=== PATIENT | female | born 1980 | race Caucasian/White ===

== ENCOUNTER 2022-08-01 22:56 | Inpatient (IN) ==
[2022-08-01] MEDS ORDERED: MoRPHine SULFATE 4 MG/ML 1 ML CARP\\VIAL IV STA (23:19)
[2022-08-01] MEDS ORDERED: ONDANSETRON INJ 2 MG/ML 2 ML VIAL IV STA (23:19)
[2022-08-01] MEDS ORDERED: SODIUM CHLORIDE 0.9% 1000ML 1,000 ML IV STA (23:19)
--- NOTE | 2022-08-01 23:29 | Emergency Department Note ---
History of Present Illness General Chief complaint: Abdominal Pain Stated complaint: STOMACH AND BACK PAIN History of Present Illness Maximum Pain Intensity: 10 This 41-year-old female presents to the ER with friend complaining of abdominal pain for the past day. She has had an appendectomy in the past. No other prior abdominal surgeries. Patient denies chest pain, dyspnea, fevers, vomiting, diarrhea, urinary symptoms. Home Medications Medication Instructions Recorded Confirmed Type No Known Home Medications 08/02/22 08/02/22 History Allergies Allergy/AdvReac Type Severity Reaction Status Date / Time No Known Allergies Allergy Verified 08/02/22 00:06 Past Med/Surg History Social History Smoking Status: Never smoker Feels Safe at Home: Yes Review of Systems A total of 10 systems reviewed and were otherwise negative Physical Exam Vital Signs Vital Signs - 24 hr 08/01/22 23:06 08/01/22 23:42 08/02/22 00:11 Temperature 36.5 C Temperature Source Temporal Artery Scan Pulse Rate 77 86 Pulse Rate from SpO2 Sensor 84 Respiratory Rate 18 21 Respiratory Effort / Characteristics Non-Labored Spontaneous Respiratory Depth Normal Blood Pressure 137/94 Blood Pressure Mean 108 Blood Pressure Position Sitting Pulse Oximetry 98 94 97 Oxygen Delivery Method Room Air Room Air Sepsis Recent Fever Within 48 Hours No Sepsis New/Unexplained Change in Mental Status N/A Sepsis Action Taken by Nursing No Action Required 08/02/22 00:30 08/02/22 00:30 08/02/22 01:00 Temperature Temperature Source Pulse Rate 77 79 Pulse Rate from SpO2 Sensor 78 80 Respiratory Rate 23 27 H Respiratory Effort / Characteristics Respiratory Depth Blood Pressure 100/60 98/64 L Blood Pressure Mean 73 75 Blood Pressure Position Pulse Oximetry 94 94 Oxygen Delivery Method Sepsis Recent Fever Within 48 Hours Sepsis New/Unexplained Change in Mental Status Sepsis Action Taken by Nursing 08/02/22 01:32 08/02/22 02:00 08/01/22 23:40 Temperature Temperature Source Pulse Rate 78 75 70 Pulse Rate from SpO2 Sensor 78 75 Respiratory Rate 19 22 Respiratory Effort / Characteristics Respiratory Depth Blood Pressure 107/65 Blood Pressure Mean 79 Blood Pressure Position Pulse Oximetry 97 94 Oxygen Delivery Method Sepsis Recent Fever Within 48 Hours Sepsis New/Unexplained Change in Mental Status Sepsis Action Taken by Nursing 08/02/22 03:48 Temperature Temperature Source Pulse Rate 71 Pulse Rate from SpO2 Sensor Respiratory Rate Respiratory Effort / Characteristics Respiratory Depth Blood Pressure Blood Pressure Mean Blood Pressure Position Pulse Oximetry Oxygen Delivery Method Sepsis Recent Fever Within 48 Hours Sepsis New/Unexplained Change in Mental Status Sepsis Action Taken by Nursing VITALS: Vitals are noted on the nurse's note and reviewed by myself. Vital signs stable. GENERAL: Pleasant female, in no acute distress, nondiaphoretic, well-developed well-nourished. SKIN: The skin was without rashes, erythema, edema, or bruising. There is no tenting of the skin. Capillary reflex less than 2 seconds. HEAD: Normocephalic atraumatic. EARS: External auditory canals clear, EYES: Pupils equal round and reactive to light and accommodation. Conjunctivae without injection, sclerae without icterus. Extraocular movements intact. NOSE: Patent, turbinates without inflammation or discharge. MOUTH: Mucous membranes moist. Pharynx without erythema or exudate. Uvula midline. Airway patent. Tongue does not deviate. NECK: Supple without nuchal rigidity. No lymphadenopathy. No thyromegaly. Cervical spine is nontender. No JVD. HEART: Regular rate and rhythm LUNGS: Clear to auscultation bilaterally without wheezes, rales or rhonchi. No retractions or accessory muscle use. ABDOMEN: Positive bowel sounds x 4. Normal tympanic percussion. Soft, diffusely tender with increased pain in the left lower quadrant, without masses or organomegaly. Calderón sign negative. No guarding or rebound tenderness. No CVA tenderness MUSCULOSKELETAL: No muscle atrophy, erythema, or edema noted. NEURO: Patient was alert and oriented to person place and time. Normal sensation to light and sharp touch. No focal neurological deficits. Course Administered Medications Discontinued Medications Sodium Chloride (Nss 1000ml) 1,000 mls @ 999 mls/hr IV .Q1H1M STA Stop: 08/02/22 00:19 Last Infusion: 08/02/22 02:08 Dose: 0 mls/hr Documented By: Admin: 08/01/22 23:45 Dose: 999 mls/hr Documented By: LEA Piperacillin Sod/Tazobactam Sod (Zosyn) 4.5 gm in 120 mls @ 240 mls/hr IV NOW ONE Stop: 08/02/22 02:54 Last Admin: 08/02/22 03:53 Dose: 240 mls/hr Documented By: LEA Sodium Chloride (Nss 1000ml) 1,000 mls @ 999 mls/hr IV .Q1H1M ONE Stop: 08/02/22 03:25 Last Admin: 08/02/22 03:53 Dose: 999 mls/hr Documented By: LEA Ioversol (Optiray 350 100ml) 100 ml IV ONCE ONE Stop: 08/02/22 01:32 Last Admin: 08/02/22 01:31 Dose: 83 ml Documented By: KEVIN Morphine Sulfate (Morphine Sulfate 4 Mg/Ml 1 Ml Carp\Vial) 4 mg IV NOW STA Stop: 08/01/22 23:20 Last Admin: 08/01/22 23:45 Dose: 4 mg Documented By: LEA Ondansetron HCl (Ondansetron Inj 2 Mg/Ml 2 Ml Vial) 4 mg IV NOW STA Stop: 08/01/22 23:20 Last Admin: 08/01/22 23:45 Dose: 4 mg Documented By: LEA Medical Decision Making Medical Records Attestation: I reviewed the patient's medical records. Home Medications Current Medication List: was personally reviewed by me Laboratory Data Attestation: I reviewed the patient's lab results. 08/01/22 23:35 08/01/22 23:35 Lab Results 08/01/22 08/01/22 08/01/22 Range/Units 23:35 23:35 23:35 WBC 8.99 (4.8-10.8) K/ul RBC 4.78 (4.20-5.40) M/uL Hgb 15.0 (12.0-16.0) g/dl Hct 44.0 (37.0-47.0) % MCV 92.1 (80.0-100.0) fL MCH 31.4 (25.0-34.0) pg MCHC 34.1 (32.0-36.0) g/dL RDW Std Deviation 42.4 (36.4-46.3) fL RDW Coeff of Nik 12.6 (11.5-14.5) % Plt Count 369 (130-400) K/uL MPV 10.8 (9.4-12.4) fL Immature Gran % (Auto) 0.2 % Neut % (Auto) 76.4 % Lymph % (Auto) 18.2 % Rice % (Auto) 4.8 % Eos % (Auto) 0.1 % Baso % (Auto) 0.3 % Neut # (Auto) 6.86 H (1.40-6.50) K/uL Lymph # (Auto) 1.64 (1.2-3.4) K/uL Rice # (Auto) 0.43 (0.11-0.59) K/uL Eos # (Auto) 0.01 (0-0.50) K/uL Baso # (Auto) 0.03 (0-0.2) K/uL Immature Gran # (Auto) 0.02 (0.01-0.20) K/uL Sodium 139 (136-145) mmol/L Potassium 3.9 (3.5-5.1) mmol/L Chloride 98 (98-107) mmol/L Carbon Dioxide 21 (21-32) mmol/L Anion Gap 20 H (3-11) BUN 8 (6-23) mg/dl Creatinine 0.34 L (0.6-1.2) mg/dl Est Cr Clr Drug Dosing 207.2 ml/min Est GFR ( Amer) > 150.0 ml/min Est GFR (Non-Af Amer) 137.4 ml/min BUN/Creatinine Ratio 23.5 H (10-20) Glucose 80 (70-99(Fasting)) mg/dl Lactate (0.4-2.0) mmol/L Calcium 10.8 H (8.5-10.1) mg/dl Total Bilirubin 1.4 H (0.2-1.0) mg/dl AST 379 H (13-39) U/L ALT 359 H (7-52) U/L Alkaline Phosphatase 238 H (34-104) U/L Total Protein 9.2 H (6.0-8.3) gm/dl Albumin 5.4 H (3.4-5.0) gm/dl Globulin 3.8 (2.5-4.0) gm/dl Albumin/Globulin Ratio 1.4 (0.9-2) Lipase 49 (11-82) U/L HCG, Qual Negative (Negative) SARS-CoV-2, RNA, NAAT (NEGATIVE) 08/02/22 08/02/22 Range/Units 03:37 04:20 WBC (4.8-10.8) K/ul RBC (4.20-5.40) M/uL Hgb (12.0-16.0) g/dl Hct (37.0-47.0) % MCV (80.0-100.0) fL MCH (25.0-34.0) pg MCHC (32.0-36.0) g/dL RDW Std Deviation (36.4-46.3) fL RDW Coeff of Nik (11.5-14.5) % Plt Count (130-400) K/uL MPV (9.4-12.4) fL Immature Gran % (Auto) % Neut % (Auto) % Lymph % (Auto) % Rice % (Auto) % Eos % (Auto) % Baso % (Auto) % Neut # (Auto) (1.40-6.50) K/uL Lymph # (Auto) (1.2-3.4) K/uL Rice # (Auto) (0.11-0.59) K/uL Eos # (Auto) (0-0.50) K/uL Baso # (Auto) (0-0.2) K/uL Immature Gran # (Auto) (0.01-0.20) K/uL Sodium (136-145) mmol/L Potassium (3.5-5.1) mmol/L Chloride (98-107) mmol/L Carbon Dioxide (21-32) mmol/L Anion Gap (3-11) BUN (6-23) mg/dl Creatinine (0.6-1.2) mg/dl Est Cr Clr Drug Dosing ml/min Est GFR ( Amer) ml/min Est GFR (Non-Af Amer) ml/min BUN/Creatinine Ratio (10-20) Glucose (70-99(Fasting)) mg/dl Lactate 2.3 H* (0.4-2.0) mmol/L Calcium (8.5-10.1) mg/dl Total Bilirubin (0.2-1.0) mg/dl AST (13-39) U/L ALT (7-52) U/L Alkaline Phosphatase (34-104) U/L Total Protein (6.0-8.3) gm/dl Albumin (3.4-5.0) gm/dl Globulin (2.5-4.0) gm/dl Albumin/Globulin Ratio (0.9-2) Lipase (11-82) U/L HCG, Qual (Negative) SARS-CoV-2, RNA, NAAT NEGATIVE (NEGATIVE) Imaging Data Attestation: I personally reviewed and interpreted this imaging study as follows: MDM Narrative Prior records/ancillary studies reviewed. Triage Nursing notes reviewed. Additional history obtained from friend. The patient's history was concerning for abdominal pain. Differential diagnosis: Etiologies such as appendicitis, diverticulitis, PUD, biliary pathology, UTI, pancreatitis, obstruction, mesenteric ischemia, aortic pathology, infections, inflammatory bowel disease, renal colic, as well as others were entertained. Physical examination findings: As above. ER treatment provided: An order was placed for continuous cardiac monitoring. The monitor shows a rate of 60-100 with a sinus rhythm per my Independent interpretation. IV fluids morphine Zofran ordered Zosyn was ordered for possible infection On reassessment the patient felt better. Diagnostics interpreted by me: The labs Independently Interpreted by myself revealed elevated LFTs and T. bili. Normal lipase. No worrisome leukocytosis Imaging studies: CT ABDOMEN & PELVIS With Contrast: Common ductal dilatation measuring 1.0 cm with mild intrahepatic biliary dilatation and adjacent periportal edema. This is increased from prior study July 26, 2012. Findings may be due to obstruction at the ampulla. Consider MRCP and correlation with laboratory values. Suspected appendectomy changes. No evidence of bowel obstruction. Left ovarian cyst, likely hemorrhagic cyst, measuring up to 2.5 cm. ACR White Paper guidelines (Pitt, et. al. JACR 2020;17(2):248-254) suggest no follow-up is necessary. No other acute findings. Radiologist: Milton Lorenzo MD Consultation: A consultation was placed with the surgical PA Reinier. The case was discussed and diagnostics were reviewed. The patient was evaluated in the ER for further treatment. He recommends medical admission Medicine is consulted and the case was discussed. Patient will be admitted to the medical team. Exam and history seem consistent with dilated common bile duct with LFTs and T. bili elevation concerning for Choledocholithiasis. patient was started on antibiotics. Medicine and surgery were consulted and MRCP was ordered. Labs and diagnostics were independent interpreted by myself. Radiology read the CAT scan. Patient is agreeable treatment plan of admission. Patient was reassessed multiple times. By the evaluation outlined above emergent etiologies such as ap pendicitis, diverticulitis, PUD, UTI, pancreatitis, mesenteric ischemia, aortic pathology, inflammatory bowel disease, renal colic, as well as others were deemed relatively unlikely. The pt informed about the findings as listed above. All questions were answered and pleased with the treatment. The chart was completed utilizing [employer] Speech voice recognition software. Grammatical errors, random word insertions, pronoun errors, and incomplete sentences are an occassional consequence of this system due to software limitations, ambient noise, and hardware issues. Any formal questions or concerns about the content, text, or information contained within the body of this dictation should be directly addressed to the physician underwriting assistant for clarification. Impression & Plan Choledocholithiasis, Elevated LFTs, Abdominal pain, acute Discharge Plan Visit Data Chief Complaint: Abdominal Pain Stated Complaint: STOMACH AND BACK PAIN ED Provider: Dion Snowden ED Midlevel Provider: Latricia Mcgee Discharge Problem: Choledocholithiasis, Elevated LFTs, Abdominal pain, acute Patient Disposition: Admitted As Inpatient Condition: Good Forms Stand Alone Forms: [employer] Prescriptions Prescriptions: No Action No Known Home Medications Referrals Referrals: PCP,NO [Primary Care Provider] -
[2022-08-02 00:04] LABS: Basophils # (auto) 0.03 K/uL (0-0.2); Basophils % (auto) 0.3 %; Eosinophils # (auto) 0.01 K/uL (0-0.50); Eosinophils % (auto) 0.1 %; Immature Granulocytes # (auto) 0.02 K/uL (0.01-0.20); Immature Granulocytes % (auto) 0.2 %; Lymphocytes # (auto) 1.64 K/uL (1.2-3.4); Lymphocytes % (auto) 18.2 %; Mean Corpuscular Hemoglobin 31.4 pg (25.0-34.0); Mean Corpuscular Hgb Conc 34.1 g/dL (32.0-36.0); Mean Corpuscular Volume 92.1 fL (80.0-100.0); Mean Platelet Volume 10.8 fL (9.4-12.4); Monocytes # (auto) 0.43 K/uL (0.11-0.59); Monocytes % (auto) 4.8 %; Neutrophils # (auto) 6.86 K/uL (1.40-6.50); Neutrophils % (auto) 76.4 %; Platelet Count 369 K/uL (130-400); RDW Coefficient of Variation 12.6 % (11.5-14.5); RDW Standard Deviation 42.4 fL (36.4-46.3); Red Blood Count 4.78 M/uL (4.20-5.40); White Blood Count 8.99 K/ul (4.8-10.8)
[2022-08-02 00:19] LABS: Alanine Aminotransferase 359 U/L (7-52); Albumin Globulin Ratio 1.4 (0.9-2); Albumin Level 5.4 gm/dl (3.4-5.0); Alkaline Phosphatase 238 U/L (34-104); Anion Gap 20 (3-11); Aspartate Aminotransferase 379 U/L (13-39); BUN Creatinine Ratio 23.5 (10-20); Bilirubin,Total 1.4 mg/dl (0.2-1.0); Blood Urea Nitrogen 8 mg/dl (6-23); Calcium 10.8 mg/dl (8.5-10.1); Carbon Dioxide 21 mmol/L (21-32); Chloride 98 mmol/L (98-107); Creatinine Clr Calc Pharmacy 207.2 ml/min; Est GFR (African American) > 150.0 ml/min; Est GFR (Non-African American) 137.4 ml/min; Globulin 3.8 gm/dl (2.5-4.0); Glucose 80 mg/dl (70-99(Fasting)); Lipase 49 U/L (11-82); Potassium 3.9 mmol/L (3.5-5.1); Sodium 139 mmol/L (136-145); Total Protein 9.2 gm/dl (6.0-8.3)
[2022-08-02 00:52] LABS: Pregnancy Test, Serum Negative (Negative)
[2022-08-02] MEDS ORDERED: OPTIRAY 350 100ml IV ONE (01:31)
[2022-08-02] MEDS ORDERED: SODIUM CHLORIDE 0.9% 1000ML 1,000 ML IV ONE (02:25)
[2022-08-02] MEDS ORDERED: PIPERACILLIN/TAZOBACTAM 4.5 GM/120 ML BAG IV ONE (02:25)
--- NOTE | 2022-08-02 04:14 | Surgery Consultation ---
Date of Consultation August 02, 2022 Assessment & Plan (1) Elevated LFTs: I discussed with the treating clinician in the emergency department. The patient is being admitted on the medical service. We recommend proceeding as follows. Provide analgesics Provide antiemetics Provide antibiotics. Zosyn has been initiated Provide IV fluid for hydration Follow serial labs There is concern for obstruction at the biliary ampulla. To further delineate the cause of the obstruction an MRCP has been ordered. We will await the results of this. Based on the results of the MRCP a gastroenterology consultation may be required. If patient has evidence of choledocholithiasis and ERCP will be required prior to entertaining performing a cholecystectomy which also may be indicated. Additional recommendation will be made based on the above pending study and recommendations by gastroenterology. Supervising Physician Co-Signing Physician Notes Dr Baig- pts case reviewed- sxs, labs, studies- dilated CBD, elev LFTs- gb distended, no thickening- possible mild inflammation MRCP , GI eval pending. Likely laparoscopic cholecystectomy this adm. History of Present Illness Reason for Consultation: Abdominal pain History of Present Illness This is a 41-year-old female who presented to [facility] emergency department secondary to abdominal pain. She notes that the pain has been present in an on-and-off fashion for several weeks and is usually located in the right upper quadrant. She said that the pain will usually resolve on its own but at approximately 5:00 PM on 08/01/2022 she developed severe right upper quadrant pain that was unremitting. She denies any fevers, shakes, or chills. She denies any nausea or vomiting. She notes that the pain does not radiate and did not have any palliative or provocative factors. Due to the unremitting nature of the pain she presented to the emergency department. Patient notes that she has had prior abdominal surgeriesshe has had an appendectomy and she has also had surgery for a hiatal hernia. Since arrival to the hospital the patient has had labs and imaging which I independent reviewed. Patient's common bile duct was dilated measuring approximately 1 cm. There is also intrahepatic biliary ductal dilatation. There is no evidence of bowel obstruction. A left ovarian cyst which was hemorrhagic in nature was also noted. There are findings consistent with a prior appendectomy. Labs include a CBC were white blood cell count, hemoglobin, hematocrit, and platelet count were normal. Chemistry profile showed sodium and potassium were normal. Her BUN and creatinine were nonelevated. LFTs were elevated with a total bilirubin of 1.4. Her AST and ALT were elevated at 379 and 359. Alkaline phosphatase was also elevated at 238. Lipase was nonelevated and a test was negative. Lactic acid had a slight elevation at 2.3. Since arrival to the hospital the patient has received 2 L of normal saline solution and antibiotics in the form of Zosyn. At the time of my interview she was resting comfortably in bed and she was in no distress. Concerning past medical problems the patient denies any medical problems Concerning past surgical history she notes she has had an appendectomy and surgery for hiatal hernia Social history the patient denies history of smoking Family history she denies any family history of premature coronary artery disease Allergies Allergy/AdvReac Type Severity Reaction Status Date / Time No Known Allergies Allergy Verified 08/02/22 00:06 Home Medications Medication Instructions Recorded Confirmed Type No Known Home Medications 08/02/22 08/02/22 History Patient History Social History Smoking Status: Never smoker Feels Safe at Home: Yes Review of Systems Constitutional: no fever and no chills Eyes: + corrective lenses Ear, Nose, Mouth, Throat: no ear pain Respiratory: no cough and no dyspnea Cardiovascular: no chest pain Gastrointestinal: as per Subjective / HPI Genitourinary: no dysuria Musculoskeletal: no back pain Integumentary: no rash Neurologic: no localized weakness Physical Exam Constitutional: WD/WN, vitals as above Eyes: + anicteric sclerae ENMT: Ears: no hearing impairment and no external ear abnormality Sublingual jaundice is absent Neck: trachea midline Respiratory: normal respiratory effort; no respiratory distress and no labored breathing Cardiovascular: Rate/Rhythm: regular rate and regular rhythm Gastrointestinal (Abdomen): Abdomen is soft and nondistended. There is no rebound tenderness or guarding. The patient did have pain with palpation greatest in the right upper quadrant but to a lesser degree just to the left of the umbilicus. Musculoskeletal: No calf tenderness Skin: no rashes Neurologic: moves all extremities Psychiatric: Orientation: alert and oriented x 3 Affect: + flat affect Results & Data ([facility]) Vital Signs (Past 12 Hours) Vital Signs Temp Pulse Resp BP Pulse Ox O2 Del Method 02/21/23 03:48 71 08/01/22 23:40 70 08/02/22 02:00 75 22 107/65 94 08/02/22 01:32 78 19 97 08/02/22 01:00 79 27 H 98/64 L 94 08/02/22 00:30 77 23 94 08/02/22 00:30 100/60 08/02/22 00:11 86 21 97 08/01/22 23:42 94 Room Air 08/01/22 23:06 36.5 C 77 18 137/94 98 Room Air PG Care Time/CCT Total # of Minutes Spent Total Time Spent with Patient: Total time spent is greater than 50% in coordination of care (as documented) at patient's floor/unit and/or counseling patient: Coding Level of Care Code INP/OBS CONSULT LVL 5, 80 MIN Diagnoses Elevated LFTs R79.89
--- NOTE | 2022-08-02 06:41 | CT Scan Report ---
CT OF THE ABDOMEN AND PELVIS WITH CONTRAST CLINICAL HISTORY: Left-sided abdominal pain. COMPARISON STUDY: CT of the abdomen and pelvis July 26, 2012. TECHNIQUE: Following IV administration of 83 mL of Optiray, axial images of the abdomen and pelvis we re obtained from the lung bases to the proximal femurs. Images were reviewed in the axial, sagittal, and coronal planes. IV contrast was administered without complication. Automated exposure control wa s utilized for the study. A dose lowering technique was utilized adhering to the principles of ALARA . CT DOSE: 511.67 mGy.cm FINDINGS: Lung bases are unremarkable. No pneumatosis, free air or portal venous gas is present. Mild intra and extrahepatic biliary ductal patient is present. The common bile duct measures 1 cm in darnell moriah. There is periportal edema. No definite peripancreatic or pericholecystic infiltration. There is no pancreatic ductal dilatation. There are no peripancreatic fluid collections. The spleen and adrena l glands are normal. There is no hydronephrosis. There is suspected excreted contrast within the homero ecting systems. The appendix is surgically absent. The caliber and wall thickness of small and large bowel are normal. 2.5 cm rim-enhancing left adnexal lesion favors a corpus luteal cyst. There is no f ree fluid. Major vasculature is patent. There is no lymphadenopathy. No acute fractures are identifie d. IMPRESSION: 1. Mild intra and extrahepatic biliary ductal dilatation. Correlation with obstructive liver function tests is recommended. 2. No bowel obstruction. Status post appendectomy. 3. Left ovarian corpus luteal cyst. ACT 112: Negative or not required by law. Electronically signed by: Tl Altamirano M.D. 08/02/2022 6:39 AM
--- NOTE | 2022-08-02 07:10 | History and Physical Report ---
DATE OF ADMISSION: 08/02/2022. CHIEF COMPLAINT: Abdominal pain. HISTORY OF PRESENT ILLNESS: This is a 41-year-old female with no significant past medical history, who presents with abdominal pain. The patient says since last two weeks, she is having on and off abdominal pain, but since yesterday 5:00 p.m., the patient pain was not getting better, very severe in nature, that is the reason she came here. Before coming here, she had a normal bowel movement. Denies any nausea or vomiting. Normal bladder movements. Denies any fevers. No chest pain, no shortness of breath, no cough, no runny nose, no sore throat. No headache or dizziness. No blurred visions. Currently, resting comfortably and hemodynamically stable. After the pain medication, pain is resolved. Hemodynamically stable. ALLERGIES: No known drug allergies. PAST MEDICAL HISTORY: None. PAST SURGICAL HISTORY: Ten years ago, she had appendectomy. She had a hiatal hernia repair. MEDICATIONS: None. FAMILY HISTORY: Denies any family history. SOCIAL HISTORY: Denies any smoking or alcohol. REVIEW OF SYSTEMS: As per HPI. Rest of review of systems is negative. PHYSICAL EXAMINATION: GENERAL: The patient is of moderate built, not in acute distress. VITAL SIGNS: Temperature 36.5, pulse 71, respiratory rate 22, blood pressure 107/65, oxygen 94% on room air. HEENT: Pupils equal, round, and reactive to light. Oral mucosa moist. NECK: No JVD. No neck masses. CARDIOVASCULAR: S1 and S2 heard. Regular rate and rhythm. No murmur, no gallop. RESPIRATORY SYSTEM: Normal AP diameter. No accessory muscle use. No wheezing, no crackles. ABDOMEN: Soft, bowel sounds are nontender, no distention. CENTRAL NERVOUS SYSTEM: Cranial nerves II-XII grossly intact, nonfocal. EXTREMITIES: No edema, no erythema. LABORATORY DATA: WBC 8.9, hemoglobin 15, hematocrit 44, platelets 369. Sodium 139, potassium 3.9, chloride 98, CO2 of 21, BUN 8, creatinine 0.3, serum glucose 80. Initial lactate was 2.3, repeat pending. Calcium 10.8, total bilirubin 1.4, AST 379, ALT 359, alkaline phosphatase 238. Lipase 49. HCG qualitative negative. SARS-CoV-2 rapid test negative. IMAGING DATA: CT of abdomen and pelvis preliminary report shows common ductal dilatation measuring 1 cm with mild intrahepatic biliary dilatation and adjacent periportal edema. This is increased from prior study from 07/26/2012. Findings may be due to obstruction of the ampulla. Consider MRCP. Likely ovarian cyst, likely hemorrhagic cyst measuring up to 2.5 cm. ASSESSMENT AND PLAN: This is a 41-year-old female who presents with abdominal pain. 1. Abdominal pain and elevated LFTs. Also some elevated lactic acid of 2.3. CT of abdomen and pelvis preliminary report is showing obstruction of the ampulla and mild intrahepatic biliary dilatation and adjacent periportal edema. We will follow the final report of the CAT scan. MRCP was also done, results are pending, also evaluated by surgery. Continue IV fluids, IV Zosyn. Keep n.p.o. Follow the repeat labs. Follow the MRCP report and also consult GI. Closely monitor in the hospital. 2. Left ovarian cyst on the CAT scan. Will follow the final reports. If needed, consult DATA MINER. 3. Deep venous thrombosis prophylaxis: Sequential compression devices for now. DISPOSITION: Closely monitor in the medical floor. Expect to discharge home and follow with family doctor. Job ID: [id number] [facility]ITAL[facility]an
[2022-08-02] MEDS ORDERED: ONDANSETRON INJ 2 MG/ML 2 ML VIAL IV PRN ×2 (08:23→13:57)
[2022-08-02] MEDS ORDERED: POLYETHYLENE (MIRALAX) 17 GM PACK PO PRN (08:23)
[2022-08-02] MEDS: ACETAMINOPHEN 325 MG TAB PO PRN ×2 (09:10→17:30)
--- NOTE | 2022-08-02 09:10 | Magnetic Resonance Report ---
MRCP CLINICAL HISTORY: Elevated hepatic transaminases and bilirubin. COMPARISON STUDY: Abdominal CT dated 08/02/2022. TECHNIQUE: Abdominal MRCP is performed utilizing various T2-weighted sequences in the axial and coron al planes. IV contrast was not administered for this examination. 3-D reformats are created and asses sed. FINDINGS: There are numerous gallstones within the gallbladder lumen. The gallbladder wall appears mildly thick ened and there is surrounding infiltration and fluid. This likely represents acute cholecystitis. The common bile duct is dilated, measuring up to 10 mm in diameter. No intraluminal filling defects are identified to suggest choledocholithiasis. Question a gallstone at the ampulla. There is only minimal intrahepatic biliary ductal dilatation. The pancreatic duct is normal in caliber. The unenhanced liver, spleen, adrenal glands, and pancreas are grossly unremarkable. The kidneys are normal in size and without hydronephrosis. Susceptibility artifact in the upper pole of the left kidn ey is likely on a postsurgical basis. The abdominal aorta is normal in course and caliber. No bowel o bstruction is seen. There is trace pericolic cystic fluid. The heart is mildly enlarged and there are trace pleural effusions. No destructive bony process is seen. IMPRESSION: 1. Cholelithiasis with findings suggestive of of acute cholecystitis. Correlate with clinical laborat ory findings. 2. Question a tiny stone at the ampulla. Choledocholithiasis is not excluded. 3. The common bile duct is dilated measures up to 10 mm. There is also mild intrahepatic biliary duct al dilatation. Dictated: 08/02/2022 8:36 AM Transcribed: 08/02/2022 8:57 AM Claire [id number] [email or web address] Electronically signed by: Fareed Lantigua M.D. 08/02/2022 9:09 AM
[2022-08-02] MEDS: D5W AND 1/2NSS 1,000 ML IV SCH ×2 (09:11→17:29)
[2022-08-02] MEDS ORDERED: INDOMETHACIN 50 MG SUPP PR ONE (09:52)
[2022-08-02 09:59] LABS: Alanine Aminotransferase 371 U/L (7-52); Albumin Globulin Ratio 1.6 (0.9-2); Albumin Level 3.6 gm/dl (3.4-5.0); Alkaline Phosphatase 160 U/L (34-104); Anion Gap 5 (3-11); Aspartate Aminotransferase 380 U/L (13-39); BUN Creatinine Ratio 20.8 (10-20); Bilirubin,Total 1.4 mg/dl (0.2-1.0); Blood Urea Nitrogen 5 mg/dl (6-23); Calcium 8.1 mg/dl (8.5-10.1); Carbon Dioxide 26 mmol/L (21-32); Chloride 109 mmol/L (98-107); Creatinine Clr Calc Pharmacy 290.7 ml/min; Est GFR (African American) > 150.0 ml/min; Est GFR (Non-African American) > 150.0 ml/min; Globulin 2.2 gm/dl (2.5-4.0); Glucose 91 mg/dl (70-99(Fasting)); Potassium 3.5 mmol/L (3.5-5.1); Sodium 140 mmol/L (136-145); Total Protein 5.8 gm/dl (6.0-8.3)
[2022-08-02] MEDS: PIPERACILLIN/TAZOBACTAM 3.375 GM in DEXTROSE 5% 100 ML IV SCH ×2 (09:59→17:28)
[2022-08-02] MEDS ORDERED: INDOMETHACIN 50 MG SUPP PR SCH (10:00)
--- NOTE | 2022-08-02 10:14 | Gastrointestinal Consultation ---
Date of Consultation August 02, 2022 Assessment & Plan (1) Choledocholithiasis: (2) Cholecystitis with cholelithiasis: Patient is a 41 years old female who presented with epigastric abdominal pain, radiating to her back, noted to have elevated LFTs and abdominal imaging studies suggestive of cholelithiasis with cholecystitis, ampullary stone with biliary ductal dilations. - Keep NPO - Zosyn IV - Plan for ERCP today in OR by Dr. Elena Yen - Surgery following. - Trend LFTs - Supportive measures and symptomatic management otherwise Supervising Physician Co-Signing Physician Notes I saw and evaluated the patient, she presented with abdominal pain, elevated liver tests and has an MRCP suggesting stone material in the distal common bile duct. PE NAD RUQ tender to palpation Impression: patient with suspected choledocholithiasis, will proceed with ERCP today for biliary decompression, risks discussed to include bleeding, pain, pancreatitis, failed cannulation and need for f/u studies. Plan ERCP today. History of Present Illness Reason for Consultation: Abdominal pain Requesting Physician: Dr. Laurence Mcgregor Attending Physician: Dr. Elena Yen History of Present Illness Pt is a 41 yo female who presented yesterday w c/o epigastric abdominal pain for the last 2 weeks. Pain may radiate to her back. She denies any associated fevers, chills, nausea or vomiting. Denies any changes in her bowel habits. She went to an [facility] doctor gave her some herbs to take for possible kidney disease, as she is told that this might be the problem. However her symptoms did not resolve. On evaluation yesterday she is afebrile, no leukocytosis, she is noted to have elevated LFTs: Total bilirubin 1.4, AST 379, ALT 359, alkaline phosphatase 238. Lipase is normal. Abdominal imaging studies with CT abdomen and pelvis as well as MRCP showed signs of cholelithiasis with cholecystitis, biliary ductal dilatation of 10 mm, possible stone in the ampullary region. She is status post appendectomy and hiatal hernia repair. She denies any tobacco, alcohol or illicit drug uses. Denies family hx of GI malignancies. Allergies Allergy/AdvReac Type Severity Reaction Status Date / Time No Known Allergies Allergy Verified 08/02/22 00:06 Home Medications Medication Instructions Recorded Confirmed Type No Known Home Medications 02/21/23 02/21/23 History Patient History Social History Smoking Status: Never smoker Second Hand Exposure: No; Do You Dip or Chew Tobacco: No; Tobacco Cessation Education Requested by Patient: No Hx Alcohol Use: No Hx Substance Use: No Preferred Language: Upper Sorbian Communication Ability: Effective Tennis Professional Required: No Beliefs That Will Affect Care: Christianity Christianity Beliefs: Abhishek Current Living Situation: Family Other Information That Helps Us Care for You: No Feels Safe at Home: Yes Assistive Devices: Denture - Upper, Denture - Lower and Glasses Assistive Devices Comment: Shoes and dress Review of Systems Review of Systems: All systems reviewed & are unremarkable except as noted in HPI & below Physical Exam Constitutional: WD/WN, vitals as above well groomed, cooperative and comfortable Eyes: PERRL, conjunctivae normal, anicteric sclerae ENMT: external ear and nose normal, oropharynx normal Respiratory: normal respiratory effort, lungs clear to auscultation Cardiovascular: RRR, no murmur, no edema Gastrointestinal (Abdomen): TTP upper abd areas, soft, no guarding. BS hypoactive Skin: no rashes, warm and dry no jaundice Psychiatric: A+Ox3, euthymic affect Lymphatic: no lymphedema Results & Data ([facility]) Vital Signs (Past 12 Hours) Vital Signs Temp Pulse Pulse Resp BP BP Pulse Ox 08/02/22 09:18 36.9 C 66 18 107/64 95 08/02/22 07:30 69 19 96 08/02/22 07:00 66 16 97 08/02/22 07:00 104/65 08/02/22 06:30 69 18 95 08/02/22 06:00 68 19 108/68 95 08/02/22 05:30 67 19 97 08/02/22 05:21 65 19 115/71 96 08/02/22 05:20 64 21 95 08/02/22 04:30 68 20 104/69 96 08/02/22 04:00 66 22 93/68 L 96 08/02/22 03:30 72 21 08/02/22 03:00 69 19 99/65 L 97 08/02/22 02:30 74 18 96 08/02/22 02:30 102/64 08/02/22 03:48 71 08/01/22 23:40 70 08/02/22 02:00 75 22 107/65 94 08/02/22 01:32 78 19 97 08/02/22 01:00 79 27 H 98/64 L 94 08/02/22 00:30 77 23 94 08/02/22 00:30 100/60 08/02/22 00:11 86 21 97 08/01/22 23:42 94 08/01/22 23:06 36.5 C 77 18 137/94 98 O2 Del Method 08/02/22 09:18 Room Air 08/02/22 07:30 Room Air 08/02/22 07:00 Room Air 08/02/22 07:00 08/02/22 06:30 08/02/22 06:00 08/02/22 05:30 08/02/22 05:21 08/02/22 05:20 08/02/22 04:30 08/02/22 04:00 08/02/22 03:30 08/02/22 03:00 08/02/22 02:30 08/02/22 02:30 08/02/22 03:48 08/01/22 23:40 08/02/22 02:00 08/02/22 01:32 08/02/22 01:00 08/02/22 00:30 08/02/22 00:30 08/02/22 00:11 08/01/22 23:42 Room Air 08/01/22 23:06 Room Air
--- NOTE | 2022-08-02 11:42 | Communication Note ---
Date of Service: August 02, 2022 Patient seen and examined Reports abd pain is currently controlled Exam notable for upper abdominal tenderness Labs notable for bilirubin of 1.4, AST of 380, ALT of 371, alkaline phosphatase of 160, Abdominal CT noted extra and intra hepatic ductal dilatation. MRCP showed cholelithiasis with findings suggestive of acute cholecystitis, question of a tiny stone in the ampulla Abdominal pain Hyperbilirubinemia. Biliary duct obstruction. Acute cholecystitis. Continue IV antibiotics GI planning ERCP. Surgery planning laparoscopic cholecystectomy Other plans as detailed in H&P
[2022-08-02 12:17] LABS: Appearance Urine Clear (Clear); Bilirubin Urine Negative (Negative); Blood Urine Negative (Negative); Color Urine Yellow; Glucose Urine UA Negative (Negative); Ketones Urine Negative (Negative); Leukocyte Esterase Urine Negative (Negative); Nitrite Urine Negative (Negative); Protein Urine Negative (Negative); Specific Gravity Urine 1.018 (1.000-1.030); Urobilinogen Urine Negative (Negative); pH Urine 6.5 (4.5-7.5)
[2022-08-02] MEDS ORDERED: fentaNYL citrate 100 MCG/2 ML VIAL ONE (13:38)
[2022-08-02] MEDS ORDERED: MIDAZOLAM HCL 1 MG/ML 2ML VIAL ONE (13:38)
--- NOTE | 2022-08-02 13:56 | Anesthesiology Consultation ---
Date of Service August 02, 2022 Assessment & Plan (1) Encounter for pre-operative examination: Chart Review Chart Review: Acceptable Risk for Surgery and Patient NOT seen in Pre Admission Testing Consults Requested none History Surgery Operation Date: 08/02/22 09:15 Proposed Procedures p Endoscopic Retrograde Cholangiopancreato - Elena Yen DO Operation Date: 08/03/22 07:15 Proposed Procedures p Laparoscopic Cholecystectomy - Kristopher Baig MD, FACS Height/Weight Height: 5 ft 2 in Weight: 72.6 kg Allergies Allergy/AdvReac Type Severity Reaction Status Date / Time No Known Allergies Allergy Verified 08/02/22 00:06 Medications Home Medications Medication Instructions Recorded Confirmed Last Taken No Known Home Medications 08/02/22 08/02/22 Unknown Active Medications Generic Name Dose Route Start Last Admin Trade Name Freq PRN Reason Stop Dose Admin Acetaminophen 650 mg 08/02/22 08:23 08/02/22 09:10 Acetaminophen 325 Mg Tab PO 09/01/22 08:22 650 mg Q4H PRN Administration pain/fever Dextrose/Sodium Chloride 1,000 mls @ 125 mls/hr 08/02/22 08:23 08/02/22 09:11 D5w And 1/2nss IV 09/01/22 08:22 125 mls/hr .Q8H FARRAH Administration Piperacillin Sod/Tazobactam 115 mls @ 28.75 mls/hr 08/02/22 10:00 08/02/22 09:59 Sod 3.375 gm/ Dextrose IV 08/12/22 10:29 28.8 mls/hr Q8H FARRAH Administration Protocol NPO Date Last Intake of Fluids: 08/01/22 Time Last Intake of Fluids: 20:00 Date Last Intake of Solids: 08/01/22 Time Last Intake of Solids: 20:00 Social History Smoking Status: Never smoker Do You Dip or Chew Tobacco: No Hx Alcohol Use: No Hx Substance Use: No Physical Exam Vital Signs Last Vital Signs Temp 97.9 F 08/02/22 13:45 Pulse 74 08/02/22 13:45 Resp 21 08/02/22 13:45 BP 122/67 08/02/22 13:45 Pulse Ox 95 08/02/22 13:45 O2 Del Method Room Air 08/02/22 13:45 Testing Laboratory Results 08/01/22 23:35 08/02/22 08:57 Urine Color Yellow 08/02/22 Unknown Urine Appearance Clear (Clear) 08/02/22 Unknown Urine pH 6.5 (4.5-7.5) 08/02/22 Unknown Ur Specific [place] 1.018 (1.000-1.030) 08/02/22 Unknown Urine Protein Negative (Negative) 08/02/22 Unknown Urine Glucose (UA) Negative (Negative) 08/02/22 Unknown Urine Ketones Negative (Negative) 08/02/22 Unknown Urine Nitrite Negative (Negative) 08/02/22 Unknown Ur Leukocyte Esterase Negative (Negative) 08/02/22 Unknown
[2022-08-02] MEDS ORDERED: fentaNYL citrate 100 MCG/2 ML VIAL IV PRN (13:57)
[2022-08-02] MEDS ORDERED: ATROPINE SULFATE 0.1 MG/ML 10ML SYR IV PRN (13:57)
[2022-08-02] MEDS ORDERED: ePHEDrine sulfate 50 MG/ML AMP IV PRN (13:57)
[2022-08-02] MEDS ORDERED: SUCCINYLCHOLINE CHLORIDE 20 MG/ML 10 ML VIAL IV ONE (14:24)
[2022-08-02] MEDS ORDERED: ONDANSETRON INJ 2 MG/ML 2 ML VIAL ONE (14:24)
[2022-08-02] MEDS ORDERED: PROPOFOL IV EMULSION 10 MG/ML 20 ML VIAL IV ONE (14:24)
[2022-08-02] MEDS ORDERED: LIDOCAINE 2% MPF LOCAL 5 ML VIAL INFIL ONE (14:24)
--- NOTE | 2022-08-02 14:44 | Post Operative Brief Note ---
Immediate Post Op Note v1 Date of Surgery August 02, 2022 Pre & Post Diagnosis Operation Date: 08/02/22 09:15 Pre-Op Diagnosis: ABDOMINAL PAIN Post-Op Diagnosis: common bile duct stones I identified the patient and participated in the time-out.: Yes Procedure Operation Date: 08/02/22 09:15 Actual Procedures p Endoscopic Retrograde Cholangiopancreato, spincterotomy, balloon sweep, stent placement - Elena Yen DO Surgeon Elena Yen, Mobile Disc Jockey none Estimated Blood Loss 0 Findings Consistent with Post-Op Diagnosis
--- NOTE | 2022-08-02 14:45 | Communication Note ---
Date of Service: August 02, 2022 Patient underwent ERCP today for suspected choledocholithiasis based on her MRCP. Several small stones were found in the distal common bile duct with di lation neurotomy and balloon sweeping. I did need to place a prophylactic stent and placed a biliary stent. The patient should undergo cholecystectomy as previously planned and have a repeat ERCP in 6 to 8 weeks for stent removal. Recommendations Antibiotic coverage for total of 10 days Continue IV hydration overnight Cholecystectomy as planned by general surgery Repeat ERCP for biliary stent removal in 6 weeks Please call with any questions or concerns
--- NOTE | 2022-08-02 14:50 | GI REPORT ---
Patient Name: Becka Louie Procedure Date: 08/02/2022 1:58 PM Date of : 1980 Admit Type: Inpatient Age: 41 Gender: Female Attending MD: Elena Yen DO, Procedure: ERCP Providers: Elena Yen DO Referring MD: Laurence Mcgregor Md, Kristopher Baig Indications: Abdominal pain of suspected biliary origin, Abnormal MRCP, Elevated liver enzymes Medicines: General Anesthesia Complications: No immediate complications. Estimated blood loss: Minimal. Estimated Blood Loss: Estimated blood loss was minimal. Estimated blood loss was minimal. Procedure: Pre-Anesthesia Assessment: - Prior to the procedure, a History and Physical was performed, and patient medications, allergies and sensitivities were reviewed. The patient's tolerance of previous anesthesia was reviewed. - The risks and benefits of the procedure and the sedation options and risks were discussed with the patient. All questions were answered and informed consent was obtained. - Patient identification and proposed procedure were verified prior to the procedure by the physician, the nurse and the animal health technician. The procedure was verified in the procedure room. - Pre-procedure physical examination revealed no contraindications to sedation. - ASA Grade Assessment: II - A patient with mild systemic disease. - After reviewing the risks and benefits, the patient was deemed in satisfactory condition to undergo the procedure. - The anesthesia plan was to use general anesthesia. - Immediately prior to administration of medications, the patient was re-assessed for adequacy to receive sedatives. - The heart rate, respiratory rate, oxygen saturations, blood pressure, adequacy of pulmonary ventilation, and response to care were monitored throughout the procedure. - The physical status of the patient was re-assessed after the procedure. After obtaining informed consent, the scope was passed under direct vision. Throughout the procedure, the patient's blood pressure, pulse, and oxygen saturations were monitored continuously. The Duodenoscope was introduced through the mouth, and advanced to the duodenum and used to inject contrast into the bile duct. The ERCP was accomplished without difficulty. The patient tolerated the procedure well. Findings: The car shifter film was normal. The esophagus was successfully intubated under direct vision without detailed examination of the pharynx, larynx, and associated structures, and upper GI tract. The upper GI tract was grossly normal. The major papilla was normal. The ventral pancreatic duct was inadvertently cannulated with the short-nosed traction sphincterotome and guidewire without any complications. The bile duct was deeply cannulated with the short-nosed traction sphincterotome and guidewire. Contrast was injected. I personally interpreted the bile duct images. Contrast extended to the hepatic ducts. The lower third of the main bile duct contained filling defect(s) thought to be a stone. Biliary sphincterotomy was made with a Fusion OMNI sphincterotome using ERBE electrocautery. There was no post-sphincterotomy bleeding. To discover objects, the biliary tree was swept with a 15 mm balloon starting at the bifurcation. Two stones were removed. No stones remained. One 5 Fr by 7 cm pancreatic stent with a full external pigtail and no internal flaps was placed 7 cm into the ventral pancreatic duct. Clear fluid flowed through the stent. The stent was in good position. One 10 Fr by 7 cm biliary stent with a single external flap and a single internal flap was placed 7 cm into the common bile duct. Bile flowed through the stent. The stent was in good position. The total fluoroscopy exposure time was 21 seconds. Indomethacin 100 mg was given via suppository to decrease the risk of post-ERCP pancreatitis (PEP). The endoscope was withdrawn from the patient. Impression: - The major papilla appeared normal. - A filling defect consistent with a stone was seen on the cholangiogram. - Choledocholithiasis was found. Complete removal was accomplished by biliary sphincterotomy and balloon extraction. - The biliary tree was swept. - One pancreatic stent was placed into the ventral pancreatic duct. - One biliary stent was placed into the common bile duct. - Indomethacin given to decrease risk of post-ERCP pancreatitis. Recommendation: - Avoid aspirin and nonsteroidal anti-inflammatory medicines for 5 days. - Clear liquid diet today. - Repeat ERCP in 6 weeks to remove stent. - Cholecytecomy asbplanned by General Surgery Elena Yen D.O. Elena Yen DO 08/02/2022 2:50:28 PM This report has been signed electronically. Note Initiated On: 08/02/2022 1:58 PM Number of Addenda: 0 I attest to the content of the Intraoperative Record and orders documented therein, exceptions below {[id number]}
--- NOTE | 2022-08-02 15:04 | Anesthesiology Progress Note ---
Date of Service August 02, 2022 Anesthesia Post Procedure Vital Signs Vital Signs: Temp Pulse Pulse Pulse Resp BP BP 08/02/22 15:00 98.1 F 69 16 103/64 08/02/22 14:50 71 19 102/68 08/02/22 14:43 97.3 F L 88 16 109/70 08/02/22 13:45 97.9 F 74 21 08/02/22 09:18 98.4 F 66 18 08/02/22 07:30 69 19 08/02/22 07:00 66 16 08/02/22 07:00 104/65 08/02/22 06:30 69 18 08/02/22 06:00 68 19 108/68 08/02/22 05:30 67 19 08/02/22 05:21 65 19 115/71 08/02/22 05:20 64 21 08/02/22 04:30 68 20 104/69 08/02/22 04:00 66 22 93/68 L 08/02/22 03:30 72 21 08/02/22 03:00 69 19 99/65 L 08/02/22 02:30 74 18 08/02/22 02:30 102/64 08/02/22 03:48 71 08/01/22 23:40 70 08/02/22 02:00 75 22 107/65 08/02/22 01:32 78 19 08/02/22 01:00 79 27 H 98/64 L 08/02/22 00:30 77 23 08/02/22 00:30 100/60 08/02/22 00:11 86 21 08/01/22 23:42 08/01/22 23:06 97.7 F 77 18 137/94 BP Pulse Ox O2 Del Method O2 Flow Rate 08/02/22 15:00 94 Room Air 08/02/22 14:50 99 Oxymask 5 08/02/22 14:43 97 Oxymask 5 08/02/22 13:45 122/67 95 Room Air 08/02/22 09:18 107/64 95 Room Air 08/02/22 07:30 96 Room Air 08/02/22 07:00 97 Room Air 08/02/22 07:00 08/02/22 06:30 95 08/02/22 06:00 95 08/02/22 05:30 97 08/02/22 05:21 96 08/02/22 05:20 95 08/02/22 04:30 96 08/02/22 04:00 96 08/02/22 03:30 08/02/22 03:00 97 08/02/22 02:30 96 08/02/22 02:30 08/02/22 03:48 08/01/22 23:40 08/02/22 02:00 94 08/02/22 01:32 97 08/02/22 01:00 94 08/02/22 00:30 94 08/02/22 00:30 08/02/22 00:11 97 08/01/22 23:42 94 Room Air 08/01/22 23:06 98 Room Air Pain Intensity Left Upper Abdomen: Pain Intensity: 7 Transfer of Care Handoff Completed per policy Notes Mental Status: alert / awake / arousable and participated in evaluation Patient Amnestic to Procedure: Yes Nausea / Vomiting: adequately controlled Pain: adequately controlled Airway Patency, RR, SpO2: stable & adequate BP & HR: stable & adequate Hydration State: stable & adequate Anesthetic Complications: no major complications apparent and Pt Satisfied with anesthetic care
--- NOTE | 2022-08-02 15:16 | Fluoroscopy Report ---
[place] ERCP biliary ductal CLINICAL HISTORY: for ercp TECHNIQUE: 6 views were obtained with the C-arm in the OR with the above procedure. Total fluoroscopy time was 21.9 seconds. Radiation dose was 4.89 mGy. Comparison: Comparison is made to MRCP 06/01/2023 FINDINGS/IMPRESSION: Intraoperative images were obtained of ERCP Please correlate with intraoperative fluoroscopy and operative report. ACT 112: Negative or not required by law. Electronically signed by: Odin Dent M.D. 08/02/2022 3:15 PM
[2022-08-02] MEDS: HYDROmorphone INJ 0.5 MG/0.5 ML SYR IV PRN (21:51)
[2022-08-03] MEDS: HYDROmorphone INJ 0.5 MG/0.5 ML SYR IV PRN ×2 (01:49→09:30)
[2022-08-03] MEDS: D5W AND 1/2NSS 1,000 ML IV SCH ×2 (02:02→09:26)
[2022-08-03] MEDS: PIPERACILLIN/TAZOBACTAM 3.375 GM in DEXTROSE 5% 100 ML IV SCH ×2 (02:04→09:38)
[2022-08-03 06:08] LABS: Alanine Aminotransferase 319 U/L (7-52); Albumin Level 3.4 gm/dl (3.4-5.0); Alkaline Phosphatase 155 U/L (34-104); Anion Gap 4 (3-11); Aspartate Aminotransferase 158 U/L (13-39); BUN Creatinine Ratio 10.3 (10-20); Bilirubin Direct 0.3 mg/dl (0-0.2); Blood Urea Nitrogen 3 mg/dl (6-23); Calcium 7.9 mg/dl (8.5-10.1); Carbon Dioxide 26 mmol/L (21-32); Chloride 107 mmol/L (98-107); Creatinine Clr Calc Pharmacy 240.6 ml/min; Est GFR (African American) > 150.0 ml/min; Est GFR (Non-African American) 144.8 ml/min; Glucose 117 mg/dl (70-99(Fasting)); Magnesium 1.8 mg/dl (1.7-2.4); Potassium 3.5 mmol/L (3.5-5.1); Sodium 137 mmol/L (136-145); Total Protein 5.6 gm/dl (6.0-8.3)
[2022-08-03 06:10] LABS: Basophils # (auto) 0.03 K/uL (0-0.2); Basophils % (auto) 0.6 %; Eosinophils # (auto) 0.05 K/uL (0-0.50); Eosinophils % (auto) 0.9 %; Hematocrit (blood only) 32.2 % (37.0-47.0); Immature Granulocytes # (auto) 0.01 K/uL (0.01-0.20); Immature Granulocytes % (auto) 0.2 %; Lymphocytes # (auto) 2.03 K/uL (1.2-3.4); Lymphocytes % (auto) 37.5 %; Mean Corpuscular Hemoglobin 31.5 pg (25.0-34.0); Mean Corpuscular Hgb Conc 34.2 g/dL (32.0-36.0); Mean Corpuscular Volume 92.3 fL (80.0-100.0); Mean Platelet Volume 10.9 fL (9.4-12.4); Monocytes # (auto) 0.43 K/uL (0.11-0.59); Monocytes % (auto) 7.9 %; Neutrophils # (auto) 2.87 K/uL (1.40-6.50); Neutrophils % (auto) 52.9 %; Platelet Count 258 K/uL (130-400); RDW Standard Deviation 43.8 fL (36.4-46.3); Red Blood Count 3.49 M/uL (4.20-5.40); White Blood Count 5.42 K/ul (4.8-10.8)
--- NOTE | 2022-08-03 06:15 | History & Physical Bridge Note ---
Date of Service August 03, 2022 History & Physical Bridge Note I have examined the patient, reviewed the History & Physical and in the interval since the performance of the History & Physical I have noted the following changes of clinical significance: no changes noted
[2022-08-03] MEDS ORDERED: MIDAZOLAM HCL 1 MG/ML 2ML VIAL ONE (06:44)
[2022-08-03] MEDS ORDERED: GLYCOPYRROLATE 0.2 MG/ML VIAL ONE (06:44)
[2022-08-03] MEDS ORDERED: PROPOFOL IV EMULSION 10 MG/ML 20 ML VIAL IV ONE (06:44)
[2022-08-03] MEDS ORDERED: NEOSTIGMINE METHYLSULFATE 1 MG/ML 10ML VIAL ONE (06:44)
[2022-08-03] MEDS ORDERED: DEXAMETHASONE SOD INJ 4 MG/ML VIAL ONE (06:44)
[2022-08-03] MEDS ORDERED: fentaNYL citrate 100 MCG/2 ML VIAL ONE (06:44)
[2022-08-03] MEDS ORDERED: ONDANSETRON INJ 2 MG/ML 2 ML VIAL ONE ×2 (06:44→07:53)
[2022-08-03] MEDS ORDERED: LIDOCAINE 2% MPF LOCAL 5 ML VIAL INFIL ONE (06:51)
[2022-08-03] MEDS ORDERED: ROCURONIUM BROMIDE 10 MG/ML 5 ML VIAL IV ONE (06:51)
[2022-08-03] MEDS ORDERED: LARYING-O-JET KIT (LTA) ONE (06:51)
[2022-08-03] MEDS ORDERED: PROMETHAZINE HCL 6.25 MG in SODIUM CHLORIDE 0.9% 50 ML IV PRN (07:09)
[2022-08-03] MEDS ORDERED: ONDANSETRON INJ 2 MG/ML 2 ML VIAL IV PRN (07:09)
[2022-08-03] MEDS ORDERED: KETOROLAC 30 MG/ML VIAL IV PRN (07:09)
[2022-08-03] MEDS ORDERED: ATROPINE SULFATE 0.1 MG/ML 10ML SYR IV PRN (07:09)
[2022-08-03] MEDS ORDERED: HYDROmorphone INJ 1 MG/ML SYRINGE IV PRN (07:09)
--- NOTE | 2022-08-03 07:09 | Anesthesiology Consultation ---
Date of Service August 03, 2022 Assessment & Plan (1) Cholecystitis with cholelithiasis: (2) Elevated LFTs: (3) Choledocholithiasis: (4) Encounter for pre-operative examination: Chart Review Chart Review: Acceptable Risk for Surgery History Surgery Operation Date: 08/02/22 09:15 Proposed Procedures p Endoscopic Retrograde Cholangiopancreato - Elena Yen DO Operation Date: 08/03/22 07:15 Proposed Procedures p Laparoscopic Cholecystectomy - Kristopher Baig MD, FACS Height/Weight Height: 5 ft 2 in Weight: 72.6 kg Allergies Allergy/AdvReac Type Severity Reaction Status Date / Time No Known Allergies Allergy Verified 08/02/22 00:06 Medications Home Medications Medication Instructions Recorded Confirmed Last Taken No Known Home Medications 08/02/22 08/02/22 Unknown Active Medications Generic Name Dose Route Start Last Admin Trade Name Freq PRN Reason Stop Dose Admin Acetaminophen 650 mg 08/02/22 08:23 08/02/22 17:30 Acetaminophen 325 Mg Tab PO 09/01/22 08:22 650 mg Q4H PRN Administration pain/fever Hydromorphone HCl 0.5 mg 08/02/22 08:23 08/03/22 01:49 Hydromorphone Inj 0.5 Mg/0.5 Ml Syr IV 08/16/22 08:22 0.5 mg Q3H PRN Administration Pain Dextrose/Sodium Chloride 1,000 mls @ 125 mls/hr 08/02/22 08:23 08/03/22 02:02 D5w And 1/2nss IV 09/01/22 08:22 125 mls/hr .Q8H FARRAH Administration Piperacillin Sod/Tazobactam 115 mls @ 28.75 mls/hr 08/02/22 10:00 08/03/22 03:13 Sod 3.375 gm/ Dextrose IV 08/12/22 10:29 Infused Q8H FARRAH Infusion Protocol NPO Date Last Intake of Fluids: 08/02/22 Time Last Intake of Fluids: 22:00 Date Last Intake of Solids: 08/02/22 Time Last Intake of Solids: 22:00 Past Medical History Medical History (Updated 08/03/22 @ 07:08 by Morro Mancia MD) Choledocholithiasis Elevated LFTs Past Surgical History Surgical History (Updated 08/03/22 @ 07:08 by Morro Mancia MD) Hx of endoscopic retrograde cholangiopancreatography Social History Smoking Status: Never smoker Do You Dip or Chew Tobacco: No Hx Alcohol Use: No Hx Substance Use: No Physical Exam Vital Signs Last Vital Signs Temp 37.1 C 08/03/22 06:40 Pulse 62 08/03/22 06:40 Resp 20 08/03/22 06:40 BP 113/72 08/03/22 06:40 Pulse Ox 98 08/03/22 06:40 O2 Del Method Room Air 08/03/22 06:40 O2 Flow Rate 5 08/02/22 14:50 Testing Laboratory Results 08/03/22 05:27 08/03/22 05:27 Urine Color Yellow 08/02/22 Unknown Urine Appearance Clear (Clear) 08/02/22 Unknown Urine pH 6.5 (4.5-7.5) 08/02/22 Unknown Ur Specific [place] 1.018 (1.000-1.030) 08/02/22 Unknown Urine Protein Negative (Negative) 08/02/22 Unknown Urine Glucose (UA) Negative (Negative) 08/02/22 Unknown Urine Ketones Negative (Negative) 08/02/22 Unknown Urine Nitrite Negative (Negative) 08/02/22 Unknown Ur Leukocyte Esterase Negative (Negative) 08/02/22 Unknown 08/02/22 03:26 Aerobic Blood Culture - Preliminary Blood No growth in Aerobic bottle after 24 hours. 08/02/22 03:26 Aerobic Blood Culture - Preliminary Blood No growth in Aerobic bottle after 24 hours. Anaerobic Blood Culture - Preliminary No growth in Anaerobic bottle after 24 hours.
[2022-08-03] MEDS ORDERED: BUPIVACAINE 0.5 % 5 MG/1 ML MPF 30ML VIAL ONE (07:10)
[2022-08-03] MEDS ORDERED: ePHEDrine sulfate 50 MG/ML SYR ONE (07:53)
[2022-08-03] MEDS ORDERED: SUGAMMADEX SODIUM 200 MG/2 ML VIAL IV ONE (07:54)
--- NOTE | 2022-08-03 08:10 | Post Operative Brief Note ---
PG Immediate Post Op with CF Date of Surgery August 03, 2022 Pre & Post Diagnosis Operation Date: 08/02/22 09:15 Pre-Op Diagnosis: ABDOMINAL PAIN, acute cholecystitis Post-Op Diagnosis: common bowel duct stones Acute and chronic cholecystitis with adhesions Operation Date: 08/03/22 07:15 Pre-Op Diagnosis: ABDOMINAL PAIN, acute cholecystitis Post-Op Diagnosis: ABDOMINAL PAIN Acute and chronic cholecystitis with adhesions I identified the patient and participated in the time-out.: Yes Procedure Operation Date: 08/02/22 09:15 Actual Procedures p Endoscopic Retrograde Cholangiopancreato, spincterotomy, balloon sweep, stent placement - Elena Yen DO Operation Date: 08/03/22 07:15 Actual Procedures p Laparoscopic Cholecystectomy(Not Applicable) - Kristopher Baig MD, FACS Laparoscopic cholecystectomy with lysis of adhesions Surgeon Kristopher Baig MD, FACS Asphalt Patcher none, for laparoscopic cholecystectomy- K Armgene Estimated Blood Loss 5 Findings Consistent with Post-Op Diagnosis Chronic adhesions with severe acute cholecystitis Specimens Specimen Description: A) Gallbladder
[2022-08-03] MEDS ORDERED: HYDROmorphone INJ 0.5 MG/0.5 ML SYR IV PRN (08:11)
[2022-08-03] MEDS ORDERED: ACETAMINOPHEN 1,000 MG/100 ML VIAL IV ONE (08:11)
--- NOTE | 2022-08-03 08:33 | Communication Note ---
Date of Service: August 03, 2022 Pt underwent ERCP w choledocholithiasis removal, biliary sphincterectomy, pancreatic & biliary stents placements 08/02/2022. Currently not in her room, d own to OR for lap cholecystectomy by Dr. Baig this AM. Chart reviewed: VS stable, no leukocytosis, LFTs trending down. GI recommendations: - Antibiotics coverage for total of 10 days - Avoid NSAIDs and ASA x 5 days after sphincterectomy - Diet advancement per Surgery team - Repeat ERCP for biliary stent removal in 6 weeks; pancreatic stent should fall off on its own - GI to sign off; pls recall prn
--- NOTE | 2022-08-03 08:54 | Operative Report (OR) ---
DATE OF OPERATION: 08/03/2022. NAME OF OPERATION: Laparoscopic cholecystectomy with lysis of adhesions. PREOPERATIVE DIAGNOSIS: Acute cholecystitis. POSTOPERATIVE DIAGNOSIS: Acute cholecystitis with acute and chronic cholecystitis and adhesions. STAFF SURGEON: Kristopher Baig MD. PUBLIC INFORMATION RELATIONS MANAGER: Eva Pepper PA-C. ANESTHESIA: General. DESCRIPTION OF PROCEDURE: The patient was brought in the operating room, placed on the operating tab le in supine position. Her abdomen was prepped and draped in the usual fashion. The patient had tejal or ERCP the day before with stent placement. My fleet administrative assistant helped with prepping, draping, removal of t he gallbladder and closure of the wounds. 0.5% plain Marcaine was used to anesthetize all incisions. Incision was made above the umbilicus, carrying dissection down to the fascia, placing a Veress nee dle producing pneumoperitoneum. An 11 mm port placed at this level and then under visualization, thr ee 5 mm ports were placed, one cephalad and two laterally. There were chronic adhesions over the gal lbladder. These were taken down. The gallbladder was acutely thickened indicating acute cholecystit is. I attempted to aspirate bile, it was sludge like. Gallbladder was retracted. There was a stone in the neck of the gallbladder. Cystic duct and cystic artery were identified as well as the common hepatic artery. Cystic duct and cystic artery were clipped and transected and the gallbladder dissec kayleen away from the liver bed. There was severe edema in the posterior wall. Gallbladder was placed i n an Endobag. After appropriate irrigation and hemostasis, the Endobag was removed through the umbil ical site. I did have to enlarge the fascial defect because of the size of the stones and gallbladde r. The fascia at the umbilicus closed using both running and 0 PDS suture. Subcutaneous tissue reap proximated using 2-0 plain suture, then the skin reapproximated using subcuticular 4-0 Monocryl with Dermabond at all incisions. The patient was transferred to recovery room in stable condition. Job ID: [id number]
[2022-08-03] MEDS ORDERED: oxyCODONE HCL IR 5 MG TAB (IMMEDIATE RELEASE) PO PRN (09:20)
--- NOTE | 2022-08-03 09:56 | Surgery Progress Note ---
Date of Service August 03, 2022 Assessment & Plan (1) S/P laparoscopic cholecystectomy: Plan: Patient had acute and chronic cholecystitis with adhesions-indicating longstanding disease She had a stone in the neck of the gallbladder causing acute inflammation If patient tolerates liquids and pain is controlled she could be discharged home later today I have completed discharge information and sent prescriptions to her pharmacy for pain medication And antibiotics I have written for her to call the office to follow-up in 2 to 3 weeks Admission and Anticipated Discharge Date Admission Date: August 02, 2022 Results & Data ([facility]) Vital Signs (Past 12 Hours) Vital Signs Temp Pulse Pulse Pulse Resp BP Pulse Ox 08/03/22 09:54 37.0 C 71 16 104/70 97 08/03/22 09:47 72 16 110/73 96 08/03/22 09:20 08/03/22 09:20 37.4 C 80 18 109/72 97 08/03/22 09:00 36.9 C 75 17 116/69 95 08/03/22 08:50 36.9 C 73 14 119/72 97 08/03/22 08:40 36.9 C 78 16 123/78 96 08/03/22 08:30 36.9 C 79 15 122/71 94 08/03/22 06:40 37.1 C 62 20 113/72 98 08/03/22 06:13 37.0 C 62 16 97/69 L 96 08/03/22 03:23 36.7 C 63 16 90/57 L 96 08/02/22 22:18 36.8 C 56 L 16 99/65 L 96 O2 Del Method O2 Flow Rate 08/03/22 09:54 Nasal Cannula 2 08/03/22 09:47 Nasal Cannula 2 08/03/22 09:20 Nasal Cannula 2 08/03/22 09:20 Nasal Cannula 2 08/03/22 09:00 Nasal Cannula 2 08/03/22 08:50 Nasal Cannula 2 08/03/22 08:40 Nasal Cannula 2 08/03/22 08:30 Nasal Cannula 2 08/03/22 06:40 Room Air 08/03/22 06:13 Room Air 08/03/22 03:23 Room Air 08/02/22 22:18 Room Air PG Care Time/CCT Total # of Minutes Spent Total Time Spent with Patient: Total time spent is greater than 50% in coordination of care (as documented) at patient's floor/unit and/or counseling patient: Coding Level of Care Code 15011 Post Operative Follow-Up Diagnoses S/P laparoscopic cholecystectomy Z90.49
--- NOTE | 2022-08-03 10:07 | Anesthesiology Progress Note ---
Date of Service August 03, 2022 Anesthesia Post Procedure Vital Signs Vital Signs: Temp Pulse Pulse Pulse Resp BP BP 08/03/22 09:54 37.0 C 71 16 104/70 08/03/22 09:47 72 16 110/73 08/03/22 09:20 08/03/22 09:20 37.4 C 80 18 109/72 08/03/22 09:00 36.9 C 75 17 116/69 08/03/22 08:50 36.9 C 73 14 119/72 08/03/22 08:40 36.9 C 78 16 123/78 08/03/22 08:30 36.9 C 79 15 122/71 08/03/22 06:40 37.1 C 62 20 113/72 08/03/22 06:13 37.0 C 62 16 97/69 L 08/03/22 03:23 36.7 C 63 16 90/57 L 08/02/22 20:30 08/02/22 22:18 36.8 C 56 L 16 99/65 L 08/02/22 19:15 36.5 C 58 L 16 98/61 L 08/02/22 18:35 36.7 C 59 L 16 99/64 L 08/02/22 17:34 36.7 C 57 L 16 103/67 08/02/22 16:30 36.7 C 61 16 100/64 08/02/22 15:37 37 C 61 16 93/61 L 08/02/22 15:15 60 21 94/63 L 08/02/22 15:00 36.7 C 69 16 103/64 08/02/22 14:50 71 19 102/68 08/02/22 14:43 36.3 C L 88 16 109/70 08/02/22 13:45 36.6 C 74 21 122/67 Pulse Ox O2 Del Method O2 Flow Rate 08/03/22 09:54 97 Nasal Cannula 2 08/03/22 09:47 96 Nasal Cannula 2 08/03/22 09:20 Nasal Cannula 2 08/03/22 09:20 97 Nasal Cannula 2 08/03/22 09:00 95 Nasal Cannula 2 08/03/22 08:50 97 Nasal Cannula 2 08/03/22 08:40 96 Nasal Cannula 2 08/03/22 08:30 94 Nasal Cannula 2 08/03/22 06:40 98 Room Air 02/22/23 06:13 96 Room Air 08/03/22 03:23 96 Room Air 08/02/22 20:30 Room Air 08/02/22 22:18 96 Room Air 08/02/22 19:15 96 Room Air 08/02/22 18:35 99 Room Air 08/02/22 17:34 97 Room Air 08/02/22 16:30 98 Room Air 08/02/22 15:37 98 Room Air 08/02/22 15:15 94 Room Air 08/02/22 15:00 94 Room Air 08/02/22 14:50 99 Oxymask 5 08/02/22 14:43 97 Oxymask 5 08/02/22 13:45 95 Room Air Pain Intensity Left Upper Abdomen: Pain Intensity: 9 Transfer of Care Handoff Completed per policy Notes Mental Status: alert / awake / arousable Patient Amnestic to Procedure: Yes Nausea / Vomiting: adequately controlled Pain: adequately controlled Airway Patency, RR, SpO2: stable & adequate BP & HR: stable & adequate Hydration State: stable & adequate Anesthetic Complications: no major complications apparent
--- NOTE | 2022-08-03 14:19 | Hospitalist Progress Note ---
Date of Service August 03, 2022 Assessment & Plan (1) Cholecystitis with cholelithiasis: (2) S/P laparoscopic cholecystectomy: (3) Elevated LFTs: (4) Hx of endoscopic retrograde cholangiopancreatography: Plan 41 yo F admitted for cholecystitis and underwent ERCP with bile duct stone removal with stent placement. Today underwent lap dax by Dr. Baig. Doing well postop and tolerating liquids. Pain is well controlled. Dr. Baig to send home this afternoon. Reviewed all post op instructions with her and she verbalized understanding with intent to comply. She understands she will need a removal of the CBD stent in a few weeks with [facility]. Cont Augmentin x 7 days. Ibuprofen PRN. LFTs are expected to resolve to normal within a week. Adry Valera DO [facility] Hospitalist Admission and Anticipated Discharge Date Admission Date: August 02, 2022 Subjective 41 yo F with choledocholithiasis and cholecystitis. She had intermittent pain since hol. Last Monday evening her pain was severe. Today she is post-op and doing well She is tolertating liquids and her pain is controlled. We reviewed restrictions and pain management options going home We reviewed the need for antibiotics and follow-up appointment. She verbalized understanding with intent to compy. Review of Systems Review of Systems: All systems were reviewed and negative except as indicated in subjective above. Physical Exam Physical Exam: CONSTITUTIONAL: WNWD, vitals as above, generally well-appearing, NAD EYES: normal conjunctivae, no scleral icterus, ENT: external ear and nose normal, bespectacled NECK: trachea midline RESPIRATORY: clear to auscultation bilaterally, no crackles, rales or wheezes, normal respiratory effort CARDIOVASCULAR: regular rate and rhythm, S1 and 2 heard without murmurs, gallops or rubs, no JVD, no peripheral edema CHEST: inspection of chest was normal GASTROINTESTINAL: soft, nontender, ND, multiple closed laparoscopic incisions, no guarding MUSCULOSKELETAL: strength 5/5 throughout, head is normocephalic and atraumatic SKIN: warm and dry NEUROLOGIC: CN 2-12 grossly intact, no sensory deficit, normal cognition, normal speech, no tremor PSYCHIATRIC: alert cooperative and oriented to person, place and time. Euthymic mood, makes good eye contact, language grossly intact, recent and remote memory grossly intact. Ambulating and mentating at her baseline. Results & Data Results & Data ([facility]) Vital Signs (Past 12 Hours) Vital Signs Temp Pulse Pulse Pulse Resp BP Pulse Ox 08/03/22 11:21 36.7 C 69 18 102/67 93 08/03/22 10:54 95 08/03/22 10:20 36.4 C L 70 18 107/72 96 08/03/22 09:54 37.0 C 71 16 104/70 97 08/03/22 09:47 72 16 110/73 96 08/03/22 09:20 08/03/22 09:20 37.4 C 80 18 109/72 97 08/03/22 09:00 36.9 C 75 17 116/69 95 08/03/22 08:50 36.9 C 73 14 119/72 97 08/03/22 08:40 36.9 C 78 16 123/78 96 08/03/22 08:30 36.9 C 79 15 122/71 94 08/03/22 06:40 37.1 C 62 20 113/72 98 08/03/22 06:13 37.0 C 62 16 97/69 L 96 08/03/22 03:23 36.7 C 63 16 90/57 L 96 O2 Del Method O2 Flow Rate 08/03/22 11:21 Room Air 08/03/22 10:54 Room Air 08/03/22 10:20 Nasal Cannula 1 08/03/22 09:54 Nasal Cannula 2 08/03/22 09:47 Nasal Cannula 2 08/03/22 09:20 Nasal Cannula 2 08/03/22 09:20 Nasal Cannula 2 08/03/22 09:00 Nasal Cannula 2 08/03/22 08:50 Nasal Cannula 2 08/03/22 08:40 Nasal Cannula 2 08/03/22 08:30 Nasal Cannula 2 08/03/22 06:40 Room Air 08/03/22 06:13 Room Air 08/03/22 03:23 Room Air Laboratory Results Short CBC 08/03/22 Range/Units 05:27 WBC 5.42 (4.8-10.8) K/ul Hgb 11.0 L D (12.0-16.0) g/dl Hct 32.2 L (37.0-47.0) % Plt Count 258 (130-400) K/uL BMP 08/03/22 05:27 Sodium 137 Potassium 3.5 Chloride 107 Carbon Dioxide 26 BUN 3 L Creatinine 0.29 L Glucose 117 H Calcium 7.9 L Liver Function 08/03/22 Range/Units 05:27 Total Bilirubin 1.0 (0.2-1.0) mg/dl Direct Bilirubin 0.3 H (0-0.2) mg/dl AST 158 H (13-39) U/L ALT 319 H (7-52) U/L Alkaline Phosphatase 155 H (34-104) U/L Albumin 3.4 (3.4-5.0) gm/dl Medications Administered Current Inpatient Medications Acetaminophen (Acetaminophen 325 Mg Tab) 650 mg PO Q4H PRN PRN Reason: pain/fever Stop: 09/01/22 08:22 Last Admin: 08/02/22 17:30 Dose: 650 mg Hydromorphone HCl (Hydromorphone Inj 0.5 Mg/0.5 Ml Syr) 0.5 mg IV Q3H PRN PRN Reason: Pain Stop: 08/16/22 08:22 Last Admin: 08/03/22 09:30 Dose: 0.5 mg Hydromorphone HCl (Hydromorphone Inj 0.5 Mg/0.5 Ml Syr) 0.25 mg IV Q3RWA PRN PRN Reason: Pain (1,2,3,4,5) Stop: 08/17/22 08:10 Piperacillin Sod/Tazobactam (Sod 3.375 gm/ Dextrose) 115 mls @ 28.75 mls/hr IV Q8H [facility]; Protocol Stop: 08/12/22 10:29 Last Infusion: 08/03/22 13:49 Dose: Infused Ondansetron HCl (Ondansetron Inj 2 Mg/Ml 2 Ml Vial) 4 mg IV Q6H PRN PRN Reason: Nausea Stop: 09/01/22 08:22 Oxycodone HCl (Oxycodone Hcl Ir 5 Mg Tab (Immediate Release)) 5 - 10 mg PO Q4HWA PRN PRN Reason: Pain Stop: 08/17/22 09:19 Polyethylene Glycol (Polyethylene (Miralax) 17 Gm Pack) 17 gm PO DAILY PRN PRN Reason: Constipation Stop: 09/01/22 08:22
--- NOTE | 2022-08-04 17:40 | Discharge Summary ---
Discharge Summary Date of Service August 03, 2022 Principal Dx & Hospital Course #1 = Principal Diagnosis (1) Cholecystitis with cholelithiasis: (2) S/P laparoscopic cholecystectomy: (3) Elevated LFTs: (4) Hx of endoscopic retrograde cholangiopancreatography: Plan 41 yo F admitted for cholecystitis and underwent ERCP with bile duct stone removal with stent placement. Today underwent lap dax by Dr. Baig. Doing well postop and tolerating liquids. Pain is well controlled. Dr. Baig to send home this afternoon. Reviewed all post op instructions with her and she verbalized understanding with intent to comply. She understands she will need a removal of the CBD stent in a few weeks with [facility]. Cont Augmentin x 7 days. Ibuprofen PRN. LFTs are expected to resolve to normal within a week. Adry Valera DO [facility] Hospitalist Discharge Exam CONSTITUTIONAL: WNWD, vitals as above, generally well-appearing, NAD EYES: normal conjunctivae, no scleral icterus, ENT: external ear and nose normal, bespectacled NECK: trachea midline RESPIRATORY: clear to auscultation bilaterally, no crackles, rales or wheezes, normal respiratory effort CARDIOVASCULAR: regular rate and rhythm, S1 and 2 heard without murmurs, gallops or rubs, no JVD, no peripheral edema CHEST: inspection of chest was normal GASTROINTESTINAL: soft, nontender, ND, multiple closed laparoscopic incisions, no guarding MUSCULOSKELETAL: strength 5/5 throughout, head is normocephalic and atraumatic SKIN: warm and dry NEUROLOGIC: CN 2-12 grossly intact, no sensory deficit, normal cognition, normal speech, no tremor PSYCHIATRIC: alert cooperative and oriented to person, place and time. Euthymic mood, makes good eye contact, language grossly intact, recent and remote memory grossly intact. Ambulating and mentating at her baseline. Updated Medication List Medication Instructions Recorded Confirmed Type amoxicillin 875 mg-potassium 1 tab PO BID #14 tabs 08/03/22 Rx clavulanate 125 mg tablet hydrocodone 7.5 mg-acetaminophen 1 tab PO Q6H PRN pain #30 tabs 08/03/22 Rx 325 mg tablet Hospital Stay Data Consultations 08/02/22 04:02 ED Decision to Admit Stat 08/02/22 08:23 Consult Gastroenterology Routine Procedures Performed Operation Date: 08/02/22 09:15 Actual Procedures p Endoscopic Retrograde Cholangiopancreato, spincterotomy, balloon sweep, stent placement - Elena Yen, Operation Date: 08/03/22 07:15 Actual Procedures p Laparoscopic Cholecystectomy(Not Applicable) - Kristopher Baig MD, FACS Diagnostic Imagining Performed 08/01/22 23:19 CT abd pelvis IV con only Stat 08/02/22 [place] ERCP biliary ductal Routine 08/02/22 03:55 MR MRCP Stat Pending Results Patient Have Any Pending Studies at Discharge: Yes Discharge Instructions Given to Patient (Per Discharging Provider) SPECIAL CARE INSTRUCTIONS: * Cover incisions and change daily for comfort/drainage. May leave uncovered with Dermabond/skin glue * * Avoid constipation- * May Use Senokot S and Milk of Magnesium twice daily as directed on the package * May use ibuprofen for pain as tolerated. * Expect some swelling and bruising. Call your doctor if: * Temperature above 101 degrees * Pain not relieved by pain medicine ordered * There is increased drainage or redness from any incision * You have any unanswered questions or concerns [phone]. FOLLOW UP VISIT: If not already scheduled, please call the office for a follow-up visit. For 2-3 weeksno sutures to remove OFFICE PHONE NUMBER: Dr. Baig Office
== END 2022-08-03 17:17 | disposition home or self-care (01) | DRG 419 ==
LOC: ED 22:56 → 3E 08-02 05:54 → SUATTDRO 08-02 05:54 → 3E 08-02 08:01